=== PATIENT | female | born 1970 | race Caucasian/White ===

== ENCOUNTER 2017-06-14 11:04 | Emergency (ER) | payer SELFPAY ==
--- NOTE | 2017-06-14 11:44 | UC ---
Throat Pain/Nasal Branden HPI - HPI Summary HPI Summary: 47 yo WF c/o sinus pressure stuffiness and B/L ear fullness x 1-2 weeks associated with URI and cough that preceded 2 weeks ago. Denies f/c but sometimes the nasal d/c is green and cough can be felt in the chest - History of Current Complaint Chief Complaint: UCGeneralIllness Stated Complaint: SINUS ISSUE Time Seen by Provider: 06/14/17 11:20 Hx Obtained From: Patient Hx Last Menstrual Period: Onset/Duration: Lasting Weeks Severity: Moderate Pain Intensity: 0 Cough: Nonproductive - Allergies/Home Medications Allergies/Adverse Reactions: Allergies Allergy/AdvReac Type Severity Reaction Status Date / Time sodium pentathal Allergy Unknown see below Uncoded 06/14/17 11:17 PMH/Surg Hx/FS Hx/Imm Hx Previously Healthy: Yes - Surgical History Surgical History: Yes Surgery Procedure, Year, and Place: [facility] shoulder - Social History Alcohol Use: Rare Substance Use Type: None Smoking Status (MU): Light Every Day Tobacco Smoker Review of Systems Constitutional: Negative Skin: Negative Eyes: Negative ENT: Sinus Congestion, Sinus Pain/Tenderness Respiratory: Cough Cardiovascular: Negative Gastrointestinal: Negative Genitourinary: Negative Motor: Negative Neurovascular: Negative Musculoskeletal: Negative Neurological: Negative Psychological: Negative All Other Systems Reviewed And Are Negative: Yes Physical Exam Triage Information Reviewed: Yes Vital Signs: Initial Vital Signs Temp 36.6 C 06/14/17 11:18 Pulse 86 06/14/17 11:18 Resp 16 06/14/17 11:18 BP 124/78 06/14/17 11:18 Pulse Ox 100 06/14/17 11:18 Eye Exam: Normal ENT Exam: Normal ENT: Positive: Pharynx normal, Nasal congestion, Nasal drainage, TMs normal, Sinus tenderness, Uvula midline Dental Exam: Normal Neck exam: Normal Neck: Positive: No Lymphadenopathy Respiratory Exam: Normal Cardiovascular Exam: Normal Abdominal Exam: Normal Musculoskeletal Exam: Normal Neurological Exam: Normal Psychological Exam: Normal Skin Exam: Normal Throat Pain/Nasal Course/Dx - Differential Dx/Diagnosis Provider Diagnoses: sinus infection. Eustachian tube dysfunction. bronchitis Discharge - Sign-Out/Discharge Documenting (check all that apply): Discharge - Discharge Plan Condition: Stable Disposition: HOME Prescriptions: Azithromycin TAB* [Zithromax TAB (Z-EVER) 250 mg #6 tabs] 2 tab PO .TODAY, THEN 1 DAILY #1 ever Patient Education Materials: Sinusitis (ED), Acute Bronchitis (ED) Referrals: No Primary Care Phys,NOPCP [Primary Care Provider] - Additional Instructions: take meds as directed - Billing Disposition and Condition Condition: STABLE Disposition: HOME
== END 2017-06-14 11:44 | disposition home or self-care (01) ==
LOC: UCEAST 11:04
DX: J32.9 Chronic sinusitis, unspecified (principal); H69.83 Other specified disorders of Eustachian tube, bilateral; J40 Bronchitis, not specified as acute or chronic; F17.210 Nicotine dependence, cigarettes, uncomplicated
CPT/HCPCS: 99202; G0463